=== PATIENT | male | born 1985 | race Hispanic/Latino ===

== ENCOUNTER 2017-02-25 16:42 | Emergency (ER) | payer OTHER ==
[2017-02-25] MEDS ORDERED: Adacel (T-DAP) 0.5 ML VIAL ONE (16:47)
[2017-02-25] MEDS ORDERED: Ondansetron HCl/PF 4 MG/2 ML Vial ONE (16:56)
--- NOTE | 2017-02-25 17:25 | RAD ---
THREE VIEWS RIGHT HAND 02/25/17 HISTORY: Laceration to third digit and amputation of fourth digit. AP, lateral and oblique views right hand is obtained. Images demonstrate amputation of the distal aspect of the fourth digit including the soft tissues an d distal aspect of the distal phalanx fourth digit. There is extensive soft tissue injury and the findings concerning for subluxation at the DIP joint o f the third digit. There also appears to be a small osseous fracture just medial to the DIP joint. T he rest of the right hand is unremarkable. IMPRESSION: Third and fourth digit injury as described above. POS: [facility]
--- NOTE | 2017-02-25 17:26 | RAD ---
THREE VIEWS LEFT HAND 02/25/17 HISTORY: Injury with machine to left hand. AP, lateral and oblique views left hand demonstrates amputation of the distal aspect involving both soft tissues and distal phalanx of the third and fourth digits. The first, second, and fifth digits are unremarkable. 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 POS: [facility]
[2017-02-25] MEDS ORDERED: Piperacillin/Tazobactam 3.375 GM VIAL ONE (17:27)
[2017-02-25] MEDS ORDERED: Sodium Chloride 0.9% 100 ML ONE (17:28)
[2017-02-25 17:48] LABS: ALT (SGPT) 25 U/L (8-55); AST (SGOT) 22 U/L (5-34); Albumin 4.8 g/dL (3.5-5.0); Alkaline Phosphatase 80 U/L (40-150); Anion Gap 16 mmol/L (10-20); BUN (Urea Nitrogen) 18 mg/dL (8.9-20.6); Bilirubin, Total 0.5 mg/dL (0.2-1.2); Calc. Creatinine Clearance 0 mL/min (70-130); Calcium 9.6 mg/dL (7.8-10.44); Carbon Dioxide 21 mmol/L (22-29); Chloride 106 mmol/L (98-107); Estimated GFR-MDRD 64; Globulin 3.1 g/dL (2.4-3.5); Glucose 108 mg/dL (70-105); Potassium 3.4 mmol/L (3.5-5.1); Protein, Total 7.9 g/dL (6.0-8.3); Sodium 140 mmol/L (136-145)
[2017-02-25 17:49] LABS: #Basophils 0.1 thou/uL (0.0-0.2); #Eosinphils 0.5 thou/uL (0.0-0.7); #Lymphocytes 3.1 thou/uL (1.20-3.40); #Monocytes 0.8 thou/uL (0.11-0.59); #Neutrophils 5.4 thou/uL (1.40-6.50); %Basophils 1.1 % (0.0-1.0); %Eosinophils 4.8 % (0.0-10.0); %Lymphocytes 31.7 % (21.0-51.0); %Monocytes 7.9 % (0.0-10.0); %Neutrophils 54.4 % (42.0-75.0); Hemoglobin 15.7 g/dL (14.0-18.0); Mean Corpuscular HGB CONC 35.6 g/dL (32.0-36.0); Mean Corpuscular Hemoglobin 32.8 pg (27.0-31.0); Mean Corpuscular Volume 92.2 fl (80.0-94.0); Mean Platelet Volume 7.5 fL (7.4-10.4); Platelet Count 239 thou/uL (130-400); RBC Distribution Width 10.9 % (11.5-14.5); White Blood Cell (WBC) Count 9.9 thou/uL (4.8-10.8)
== END 2017-02-25 18:34 | disposition short-term general hospital (02) ==
LOC: NAV ERS 16:42
DX: S68.113A Complete traumatic metacarpophalangeal amputation of left middle finger, initial encounter (principal); S68.114A Complete traumatic metacarpophalangeal amputation of right ring finger, initial encounter; S68.115A Complete traumatic metacarpophalangeal amputation of left ring finger, initial encounter; S68.122A Partial traumatic metacarpophalangeal amputation of right middle finger, initial encounter; F17.210 Nicotine dependence, cigarettes, uncomplicated; Z23 Encounter for immunization; W31.89XA Contact with other specified machinery, initial encounter; Y92.69 Other specified industrial and construction area as the place of occurrence of the external cause; Y99.0 Civilian activity done for income or pay
CPT/HCPCS: 80053; 85025; 90471; 90715; 96365; 96375; 96376; 99001; J1170; J2270; J2405; J2543; J7050